=== PATIENT | female | born 1950 | race Caucasian/White ===

== ENCOUNTER 2021-06-19 08:59 | Outpatient (REF) | payer MEDICARE, OTHER, SELFPAY ==
--- NOTE | 2021-06-19 16:49 | MHC.AU.ANR ---
Adult Audiological Evaluation Date of Visit: 06/19/21 Reason for Appointment: Audiological evaluation due to concern for decreased hearing. Ms. Gamboa reports difficulty hearing and understanding speech. She believes her hearing difficulties first began ~1 year ago following a spell of vertigo. She notes that she still gets dizzy almost daily, especially rolling over in bed from her left side to her right side. She notes intermittent tinnitus, worse in the right ear. Does patient feel they have a hearing loss?: Yes If Yes, Which Ear?: Both Ears When Was Hearing Difficulty First Noticed?: one year ago Has hearing been tested previously?: No Hearing Handicap Inventory: HHIE SCORE: 26 Based on HHIE score, patient has: Severe perceived hearing handicap Ear History: Bothersome Tinnitus/Ringing/Noises in Ears: Right Ear Blocked/Full Sensation in Ear(s): Both Ears History of occupational noise exposure?: Yes: [employer], 20 years Medical History: Medical History: Dizziness or Unsteadiness, Headache, High Blood Pressure Allergies: Percocet, acetaminophen, oxycodone Medication List: Topiramate 25 mg, sertraline HCL 25 mg, Tylenol 8 hour 650 mg PRN, Dristan 0.05% 2x daily PRN, Miralax 17 gram daily, Toprol XL 100 mg, Atorvastatin calcium 40 mg, Vitamin D3 25 mcg, Insulin 0.5 mL, Aspirin 81 mg, multivitamin, Lisinopril 40 mg, Novolog 100 unit/mL Otoscopy: Right Ear: Unremarkable Left Ear: Unremarkable Tympanometry: Tympanometry performed due to: Patient reports sensation that ears are blocked/plugged. Right Ear: Normal Middle Ear System (Type A) Left Ear: Normal Middle Ear System (Type A) Hearing Evaluation: Transducer(s) Used: Insert Earphones, Bone Conduction Method: Conventional Audiometry Stimuli Used: Pure Tones Right Ear: Description of Hearing: Mild hearing loss at 250 Hz, sloping to a moderate sensorinerual hearing loss from 500-8000 Hz. Left Ear: Description of Hearing: Mild hearing loss at 250 Hz, sloping to a moderate sensorineural hearing loss from 500-8000 Hz. Speech Recognition Threshold (SRT): Method Used: Monitored Live Voice Stimuli Used: Spondee Words Right Ear: 45 dBHL Left Ear: 45 dBHL Word Discrimination: Method: Recorded Lists Word Lists Used: PBK Right Ear: 64% at 85 dBHL Left Ear: 76% at 85 dBHL Note: Patient became very anxious during speech testing and stated she was becoming claustrophobic. Speech understanding scores may have been impacted and may not be an accurate representation of her speech understanding abilities. Recommendations: Audiological re-evaluation in one year. Trial with amplification is recommended. Reviewed results with patient and discussed hearing aid candidacy. Recommended that Ms. Gamboa consult her health insurance company to see if she has any hearing aid benefits. She was welcomed to return for a hearing aid consultation if she decides she would like to pursue hearing aids through our clinic. Diagnosis: Primary Diagnosis: H90.3 Bilateral Sensorineural Hearing Loss Services Performed: Services Performed: Comprehensive Audiological Evaluation (CPT 00928) Tympanometry (CPT 86742) Signature: Provider: Teddy Hay, CCC-A
== END 2021-06-19 09:00 | disposition home or self-care (01) ==
LOC: HO.SH 08:59
PROVIDERS: Visit Provider Internal Medicine
DX: H90.3 Sensorineural hearing loss, bilateral (principal)
CPT/HCPCS: 92557; 92567

== ENCOUNTER 2024-08-03 14:17 | Outpatient (REF) | payer MEDICARE, SELFPAY ==
[2024-08-03 18:20] LABS: Alanine Aminotransferase 25 U/L (0-31); Albumin Level 4.2 g/dL (3.5-5.0); Alkaline Phosphatase 91 U/L (39-117); Anion Gap 9 (12-20); Aspartate Amino Transferase 24 U/L (5-31); Bilirubin Total 0.5 mg/dL (0.0-1.0); Blood Urea Nitrogen 15 mg/dL (9-16); Calcium 9.4 mg/dL (8.4-10.2); Carbon Dioxide 26 mmol/L (22-29); Chloride 106 mmol/L (96-108); Cholesterol 244 mg/dL (<200); Estimated Glomerular Filt Rate > 60; Glucose Random 199 mg/dL (60-115); HDL Cholesterol 52 mg/dL (>40); LDL Cholesterol Calculated 157 mg/dL (<100); Potassium 3.9 mmol/L (3.3-5.1); Sodium 137 mmol/L (135-145); Total Protein 7.2 g/dL (6.5-8.0); Triglycerides 176 mg/dL (<150)
[2024-08-03 18:35] LABS: TSH reflex Free T4 1.11 uIU/mL (0.32-4.0)
[2024-08-04 08:35] LABS: ~HepC Num1 0.12 S/CO (0.00-0.79); ~Hepatitis C Antibody Nonreactive (Nonreactive)
== END 2024-08-03 14:18 | disposition home or self-care (01) ==
LOC: HO.CHCLDS 14:17
PROVIDERS: Visit Provider Internal Medicine
DX: E11.9 Type 2 diabetes mellitus without complications (principal); Z79.4 Long term (current) use of insulin; I10 Essential (primary) hypertension; E78.2 Mixed hyperlipidemia
CPT/HCPCS: 36415; 80053; 80061; 84443; 86803